=== PATIENT | female | born 1990 | race Two or more races ===

== ENCOUNTER 2021-07-01 09:00 | Emergency (ER) | payer OTHER ==
[~2021-07-01] VITALS: Ht 172.7 cm; Wt 100.0 kg
[2021-07-01 09:05] VITALS: BP 109/40
--- NOTE | 2021-07-01 09:12 | NUR ---
[place] [facility] [place]. PT C/O DARK URINE, N/V, AND WEAKNESS. PT STATES SHE HAD KIDNEY ISSUES AT 18 WITH SIGNIFICANT FAMILY HX, BUT SHE HAS NOT BEEN DX. [place] BEEN [place] THE [place] FOR 2 DAYS AND HAS BEEN USING DRUGS RECREATIONALLY, ACID, MUSHROOMS, COCAINE, MDMA. PT DENIES ABD PAIN, SOB, OR DIARRHEA.
[2021-07-01] MEDS ORDERED: ONDANSETRON 2MG/ML, 2ML IVPush ONE (10:00)
[2021-07-01] MEDS ORDERED: SODIUM CHLORIDE 0.9% 1,000ML IVBOLUS ONE (10:00)
[2021-07-01] MEDS ORDERED: ONDANSETRON 2MG/ML, 2ML ONE (10:04)
[2021-07-01 10:22] LABS: BASOPHILS % (AUTO) 0 % (0-1); EOSINOPHILS % (AUTO) 1 % (1-7); LYMPHOCYTES % (AUTO) 28 % (22-44); MEAN CORPUSCULAR HEMOGLOBIN 25.1 pg (27.0-34.8); MEAN CORPUSCULAR HGB CONC 33.2 g/dL (32.4-35.8); MEAN PLATELET VOLUME 9.6 fL (7.4-10.4); MONOCYTES % (AUTO) 5 % (2-9); NEUTROPHILS % (AUTO) 66 % (42-75); PLATELET COUNT 279 x10^3/uL (130-400); RED BLOOD COUNT 5.14 x10^6/uL (3.82-5.3); RED CELL DISTRIBUTION WIDTH 14.6 % (9.6-15.2)
[2021-07-01 10:27] LABS: ALBUMIN 3.6 g/dL (3.4-5.0); ANION GAP 8 mmol/L (5-15); CALCIUM 8.4 mg/dL (8.5-10.1); CHLORIDE 108 mmol/L (98-107)
[2021-07-01 10:30] LABS: ALANINE AMINOTRANSFERASE 19 U/L (12-78); ALKALINE PHOSPHATASE 74 U/L (45-117); BILIRUBIN,TOTAL 0.7 mg/dL (0.2-1.0); CREATININE 0.82 mg/dL (0.55-1.02); TOTAL PROTEIN 7.2 g/dL (6.4-8.2)
[2021-07-01] MEDS ORDERED: SODIUM CHLORIDE FLUSH 10ML SYR IVF ONE (10:30)
[2021-07-01 10:35] LABS: MICROSCOPIC INDICATED
--- NOTE | 2021-07-01 11:00 | NUR ---
PT ADVISED THAT THE PROVIDER NEEDS A CLEAN URINE SAMPLE VIA STRAIGHT CATH. PT IS REFUSING AT THIS TIME.
--- NOTE | 2021-07-01 11:21 | NUR ---
BLADDER SCAN AMOUNTS 150ML. PT STILL REFUSING STRAIGHT CATH. EDUCATED AGAIN ON OBTAINING A CLEAN SAMPLE.
[2021-07-01 11:39] LABS: MICROSCOPIC INDICATED
== END 2021-07-01 12:44 | disposition home or self-care (01) ==
LOC: ED 11:32
DX: R55 Syncope and collapse (principal); N30.00 Acute cystitis without hematuria; R42 Dizziness and giddiness; R53.1 Weakness; R11.2 Nausea with vomiting, unspecified; R94.31 Abnormal electrocardiogram [ECG] [EKG]
CPT/HCPCS: 36415; 71045; 80053; 81001; 84703; 85025; 87086; 93005; 96374; 99285; J2405